=== PATIENT | female | born 1985 | race Caucasian/White ===

== ENCOUNTER 2017-05-08 07:33 | Inpatient (IN) | payer BC ==
[2017-05-10] MEDS ORDERED: Promethazine HCl 25 MG/ML VIAL IM PRN ×2 (16:10→22:38)
[2017-05-10] MEDS ORDERED: Ondansetron HCl/PF 4 MG/2 ML Vial IVP PRN ×2 (16:10→22:38)
[2017-05-10] MEDS ORDERED: Acetaminophen 500 MG TAB PO PRN (16:10)
[2017-05-10] MEDS ORDERED: Lidocaine 1% (PF) 30 ML VIAL SC PRN (16:10)
[2017-05-10] MEDS ORDERED: Zolpidem Tartrate 5 MG TAB PO PRN (16:10)
[2017-05-10] MEDS ORDERED: LR / Pitocin 40 units/1000 ml 1,000 ML IV PRN (16:10)
[2017-05-10] MEDS ORDERED: LR 500 ML/Oxytocin 10 units 500 ML IV SCH (16:15)
[2017-05-10] MEDS ORDERED: Bupivacaine/Epinephrine 0.25% 30 ML VIAL ONE (17:00)
[2017-05-10] MEDS: Lactated Ringer's 1,000 ML IV SCH (21:20)
[2017-05-10] MEDS ORDERED: Bupivacaine 20 ML, Fentanyl 400 MCG in Sodium Chloride 0.9% 72 ML EPIDURAL SCH (21:30)
[2017-05-10] MEDS ORDERED: Misoprostol 100 MCG TAB VAG SCH (21:30)
[2017-05-10 21:37] LABS: Hemoglobin 12.6 g/dL (12.0-16.0); Mean Corpuscular HGB CONC 34.5 g/dL (32.0-36.0); Mean Corpuscular Hemoglobin 32.9 pg (27.0-31.0); Mean Corpuscular Volume 95.3 fl (81.0-99.0); Mean Platelet Volume 9.4 fL (7.4-10.4); Platelet Count 211 thou/uL (130-400); RBC Distribution Width 10.6 % (11.5-14.5); Red Blood Cell (RBC) Count 3.85 mill/uL (4.20-5.40); White Blood Cell (WBC) Count 12.4 thou/uL (4.8-10.8)
[2017-05-10 21:39] VITALS: BMI 24.4
[2017-05-10] MEDS ORDERED: Naloxone HCl 0.4 mg/ml Vial IVP PRN ×2 (22:38)
[2017-05-10] MEDS ORDERED: ePHEDrine/0.9% NaCl/PF SYRINGE 50 mg/10 ml SLOW IVP PRN (22:38)
[2017-05-10] MEDS ORDERED: Eucerin (Mineral Oil/Petrolatum,White) 30 gm Jar TOP PRN (22:38)
[2017-05-10] MEDS ORDERED: diphenhydrAMINE 50 MG/ML VIAL IVP PRN (22:38)
[2017-05-10] MEDS ORDERED: Acetaminophen 325 MG TAB PO PRN (22:38)
[2017-05-10] MEDS ORDERED: Lactated Ringer's 500 ML IV PRN (22:38)
[2017-05-10] MEDS ORDERED: Fentanyl 4mcg/Marcaine 0.1% Cassette 100 ML EPIDURAL SCH (22:45)
[2017-05-10] MEDS ORDERED: Communication Order-Pharmacy FS SCH (22:45)
[2017-05-10 22:51] LABS: Syphilis Antibody Nonreactive (Nonreactive); Syphilis Antibody Index 0.02 S/CO (<1.00 Non-Reactive)
[2017-05-10 23:27] LABS: Hep B Surf Ag Non-Reactive S/CO (NonReactive)
[2017-05-10 23:30] LABS: HIV (1/2) Antibody/Antigen Non-Reactive (NonReactive); HIV 1/2 INDEX 0.13 S/CO (<1.00)
[2017-05-11] MEDS: Lactated Ringer's 1,000 ML IV SCH ×2 (01:47→12:19)
[2017-05-11] MEDS ORDERED: Lidocaine 1% (PF) 30 ML VIAL ONE (05:03)
[2017-05-11] MEDS: LR / Pitocin 40 units/1000 ml 1,000 ML IV SCH ×2 (07:15→08:33)
[2017-05-11] MEDS ORDERED: Preparation H Ointment 28 GM TUBE PR PRN (07:26)
[2017-05-11] MEDS ORDERED: Bisacodyl 10 MG SUPP PR PRN (07:26)
[2017-05-11] MEDS ORDERED: traMADol HCl 50 MG TAB PO PRN (07:26)
[2017-05-11] MEDS ORDERED: Benzocaine/Menthol 20-0.5% 60 ML CAN TOP PRN (07:26)
[2017-05-11] MEDS ORDERED: Adacel (T-DAP) 0.5 ML VIAL IM ONE (07:26)
[2017-05-11] MEDS ORDERED: Milk Of Magnesia 30 ML UDCUP PO PRN (07:26)
[2017-05-11] MEDS ORDERED: diphenhydrAMINE 25 MG CAP PO PRN (07:26)
[2017-05-11] MEDS ORDERED: Misoprostol 200 MCG TAB VAG SCH (07:30)
[2017-05-11] MEDS: Prenatal Vitamin 1 TAB PO SCH (10:33)
[2017-05-11] MEDS: Docusate Calcium (SURFAK) 240 MG CAP PO SCH ×2 (10:33→21:26)
[2017-05-11] MEDS: Ferrous Sulfate 325 MG TAB PO SCH ×2 (10:52→18:07)
--- NOTE | 2017-05-11 11:23 | PDOC.OPDEL ---
OB Operative/Delivery Note Delivery Dr/Surgeon: Nadia Pre-Delivery Diagnosis: active labor Procedure/Post Delivery Dx: spontaneous vaginal delivery Weeks gestation: 40 Anesthesia: epidural - Findings A Sex: male Weight: 6 lb 13 oz - 1 min: 2 - 5 min: 7 - Additional Findings/Plan Placenta delivered: spontaneous Repaired Obstetrical Laceration: 2nd degree (tight nuchal cord-clamped and cut to deliver head.) Estimated blood loss: 250ml Post delivery plan: routine recovery (tight nuchal cord clamped and cut for delivery of head)
[2017-05-11] MEDS: Ibuprofen 800 MG TAB PO SCH ×2 (14:04→21:25)
[2017-05-11] MEDS ORDERED: Sodium Chloride 0.9% 0 ML ONE (16:39)
[2017-05-12] MEDS: Ibuprofen 800 MG TAB PO SCH ×2 (05:54→15:30)
--- NOTE | 2017-05-12 08:03 | PDOC.PP ---
Post Progress Note Post Day #: 1 Subjective: no concerns. progressing. PO intake tolerated: yes Flatus: yes Ambulation: yes Vital Signs (12 hours) Temp Pulse Resp BP 05/12/17 03:40 97.9 F 63 16 112/66 05/11/17 23:50 98.4 F 66 18 100/60 05/11/17 20:10 98.2 F 89 18 114/79 Weight Weight 156 lb - Physical Examination General: NAD Cardiovascular: no m/r/g, RRR Respiratory: clear to auscultation bilaterally, non-labored breathing Abdominal: + bowel sounds, lochia, no distention, appropriately TTP Result Diagrams: 05/10/17 21:24 Additional Labs: Post Labs Hep Bs Antigen Non-Reactive S/CO (NonReactive) 05/10/17 21:53 - Assessment/Plan post day 1--doing well. possible d/c this PM if baby is ready. f/u in 6 weeks. OTC ibuprofen.
[2017-05-12 08:30] VITALS: BP 103/61; TEMP 97.8
[2017-05-12] MEDS: Docusate Calcium (SURFAK) 240 MG CAP PO SCH (09:33)
[2017-05-12] MEDS: Prenatal Vitamin 1 TAB PO SCH (09:33)
[2017-05-12] MEDS: Ferrous Sulfate 325 MG TAB PO SCH ×2 (09:34→17:24)
== END 2017-05-12 19:00 | disposition home or self-care (01) | DRG 775 ==
LOC: L&D 05-10 21:00 → 3SW 05-11 10:20
PROVIDERS: ADMIT Obstetrics & Gynecology; ATTEND Obstetrics & Gynecology
PROC: 10E0XZZ Delivery of Products of Conception, External Approach (ICD-10-PCS; principal; 2017-05-11)
PROC: 0KQM0ZZ Repair Perineum Muscle, Open Approach (ICD-10-PCS; 2017-05-11)
DX: O69.1XX0 Labor and delivery complicated by cord around neck, with compression, not applicable or unspecified (principal); O48.0 Post-term pregnancy; O70.1 Second degree perineal laceration during delivery; Z3A.40 40 weeks gestation of pregnancy; Z37.0 Single live birth
CPT/HCPCS: 36415; 51702; 85027; 85461; 86780; 87340; 87389; 90384; 96372; A4216; J0595; J2001; J2405; J3010; J3490; J7050

== ENCOUNTER 2018-06-04 05:30 | Inpatient (IN) | payer BC ==
[~2018-06-04 05:30] MED LIST: Acetaminophen 500 MG TAB PO PRN; Butorphanol Tartrate 1 MG/ML VIAL SLOW IVP PRN; HYDROcodone/Acetaminophen 5/325 mg Tablet PO PRN; Ibuprofen 800 MG TAB PO PRN; Lidocaine 1% (PF) 30 ML VIAL SC PRN; Misoprostol 200 MCG TAB PR PRN; NS / Oxytocin 40 units/1000ml 1,000 ML IV PRN; NS w/ Oxytocin 10 units 500 ML IV SCH; Ondansetron PF 4 MG/2 ML Vial IVP PRN; Promethazine HCl 25 MG/ML VIAL IM PRN
[2018-06-04 07:20] VITALS: BMI 24.1
[2018-06-04] MEDS: Lactated Ringer's 1,000 ML IV SCH ×3 (07:33→12:22)
[2018-06-04 07:48] LABS: Hemoglobin 11.5 g/dL (12.0-16.0); Mean Corpuscular HGB CONC 33.3 g/dL (32.0-36.0); Mean Platelet Volume 9.8 fL (7.4-10.4); Platelet Count 161 thou/uL (130-400); RBC Distribution Width 11.4 % (11.5-14.5); Red Blood Cell (RBC) Count 3.73 mill/uL (4.20-5.40); White Blood Cell (WBC) Count 10.4 thou/uL (4.8-10.8)
[2018-06-04 08:27] LABS: Syphilis Antibody Nonreactive (Nonreactive); Syphilis Antibody Index 0.02 S/CO (<1.00 Non-Reactive)
[2018-06-04 08:35] LABS: Hep B Surf Ag Non-Reactive S/CO (NonReactive)
[2018-06-04] MEDS ORDERED: Bupivacaine/Epinephrine 0.25% 30 ML VIAL ONE (09:00)
[2018-06-04] MEDS ORDERED: Fentanyl 4 mcg/Bup 0.1% Cadd 100 ML ONE ×2 (09:46→16:19)
[2018-06-04] MEDS ORDERED: Lidocaine 1.5%/Epinephrine 1:200,000 5 ML AMPUL IJ ONE (09:48)
[2018-06-04] MEDS ORDERED: Eucerin (Mineral Oil/Petrolatum,White) 30 gm Jar TOP PRN (11:05)
[2018-06-04] MEDS ORDERED: Ondansetron PF 4 MG/2 ML Vial IVP PRN (11:05)
[2018-06-04] MEDS ORDERED: Promethazine HCl 25 MG/ML VIAL IM PRN (11:05)
[2018-06-04] MEDS ORDERED: Lactated Ringer's 500 ML IV PRN (11:05)
[2018-06-04] MEDS ORDERED: diphenhydrAMINE 50 MG/ML VIAL IVP PRN (11:05)
[2018-06-04] MEDS ORDERED: Naloxone HCl 0.4 mg/ml Vial IVP PRN ×2 (11:05)
[2018-06-04] MEDS ORDERED: Acetaminophen 325 MG TAB PO PRN (11:05)
[2018-06-04] MEDS ORDERED: ePHEDrine/0.9% NaCl/PF SYRINGE 50 mg/10 ml SLOW IVP PRN (11:05)
[2018-06-04] MEDS ORDERED: Communication Order-Pharmacy FS SCH (11:15)
[2018-06-04] MEDS ORDERED: Fentanyl 4 mcg/Bupivacaine 0.1% Cassette 100 ML EPIDURAL SCH (11:15)
--- NOTE | 2018-06-04 11:17 | PDOC.EVN ---
Event Note - Event Note Event Note: Asked to AROM by Dr. Zuniga. Comfortable with epidural. SVE= 4/50/vtx, -3. FHTs are stable, UCs q 3-5 mins. Plan: Continue induction, defer AROM for now.
--- NOTE | 2018-06-04 13:17 | PDOC.EVN ---
Event Note - Event Note Event Note: Remains comfortable with epidural. SVE 4-5/60/-1, vtx. AROM- clear fluid. FHTs stable. UCs q 1-[address] Zuniga notified.
[2018-06-04] MEDS ORDERED: Bupivacaine HCl 0.25%/Epi 0.0005/PF 10 ML VIAL FS ONE (17:53)
--- NOTE | 2018-06-04 18:28 | PDOC.OPDEL ---
OB Operative/Delivery Note Delivery Dr/Surgeon: Nadia Pre-Delivery Diagnosis: elective induction Procedure/Post Delivery Dx: spontaneous vaginal delivery Weeks gestation: 39 Anesthesia: epidural - Findings A - 1 min: 9 - 5 min: 9 - Additional Findings/Plan Placenta delivered: spontaneous Repaired Obstetrical Laceration: 2nd degree Estimated blood loss: 100ml Post delivery plan: routine recovery
[2018-06-04] MEDS ORDERED: diphenhydrAMINE 25 MG CAP PO PRN (18:31)
[2018-06-04] MEDS ORDERED: Preparation H Ointment 28 GM TUBE PR PRN (18:31)
[2018-06-04] MEDS ORDERED: Bisacodyl 10 MG SUPP PR PRN (18:31)
[2018-06-04] MEDS ORDERED: Adacel (T-DAP) 0.5 ML SYRINGE IM ONE (18:31)
[2018-06-04] MEDS ORDERED: Milk Of Magnesia 30 ML UDCUP PO PRN (18:31)
[2018-06-04] MEDS ORDERED: Benzocaine/Menthol 20-0.5% 60 ML CAN TOP PRN (18:31)
[2018-06-04] MEDS ORDERED: NS / Oxytocin 40 units/1000ml 1,000 ML IV SCH (18:45)
[2018-06-04] MEDS: Ibuprofen 800 MG TAB PO SCH (23:53)
[2018-06-04] MEDS: Docusate Calcium (SURFAK) 240 MG CAP PO SCH (23:53)
--- NOTE | 2018-06-05 08:12 | PDOC.PP ---
Post Progress Note Post Day #: 1 PO intake tolerated: yes Flatus: yes Ambulation: yes Vital Signs (12 hours) Temp Pulse Resp BP Pulse Ox 06/05/18 07:56 97.6 F 67 20 104/58 L 99 06/04/18 21:20 100 Weight Weight 154 lb - Physical Examination Abdominal: + bowel sounds, lochia, no distention, appropriately TTP Result Diagrams: 06/04/18 07:33 Additional Labs: Post Labs Blood Type O NEGATIVE 06/04/18 07:33 Hep Bs Antigen Non-Reactive S/CO (NonReactive) 06/04/18 07:33 - Assessment/Plan Doing well post day 1...rOUTINE CARE.Desires to go home this evening if baby does well.
[2018-06-05] MEDS: Ibuprofen 800 MG TAB PO SCH ×2 (08:18→16:46)
[2018-06-05] MEDS: Ferrous Sulfate 325 MG TAB PO SCH ×2 (08:19→16:53)
[2018-06-05] MEDS: Docusate Calcium (SURFAK) 240 MG CAP PO SCH ×2 (08:19→11:02)
[2018-06-05 17:32] VITALS: BP 111/71; TEMP 98
[2018-06-05] MEDS ORDERED: traMADol HCl 50 MG TAB PO PRN (18:31)
== END 2018-06-05 20:32 | disposition home or self-care (01) | DRG 807 ==
LOC: L&D 06:30 → 3SW 21:24
PROVIDERS: ADMIT Obstetrics & Gynecology; ATTEND Obstetrics & Gynecology
PROC: 10E0XZZ Delivery of Products of Conception, External Approach (ICD-10-PCS; principal; 2018-06-05)
PROC: 0KQM0ZZ Repair Perineum Muscle, Open Approach (ICD-10-PCS; 2018-06-05)
DX: O70.1 Second degree perineal laceration during delivery (principal); Z37.0 Single live birth; Z3A.39 39 weeks gestation of pregnancy
CPT/HCPCS: 36415; 51702; 85027; 85461; 86780; 86850; 86900; 86901; 87340; 90384; 90715; 96372; J1200; J3490

== ENCOUNTER 2020-09-25 13:27 | Outpatient (CLI) | payer BC | END 2020-09-25 13:28 | disposition home or self-care (01) | LOC: BICULT 13:27 | PROVIDERS: ATTEND Obstetrics & Gynecology | DX: R93.421 Abnormal radiologic findings on diagnostic imaging of right kidney (principal) | CPT/HCPCS: 76770 ==